=== PATIENT | female | born 1990 | race Caucasian/White ===

== ENCOUNTER 2021-02-08 01:51 | Emergency (ER) | payer MEDICAID ==
[~2021-02-08] VITALS: Ht 165.1 cm; Wt 90.0 kg
[2021-02-08 03:10] VITALS: BP 166/99
== END 2021-02-08 03:15 ==
LOC: ER 01:51
DX: I10 Essential (primary) hypertension (principal); E66.9 Obesity, unspecified; Z68.33 Body mass index [BMI] 33.0-33.9, adult; Z88.8 Allergy status to other drugs, medicaments and biological substances
CPT/HCPCS: 99283